=== PATIENT | female | born 1975 | race African-American/Black ===

== ENCOUNTER 2017-06-28 06:33 | Emergency (ER) | payer OTHER | END 2017-06-28 09:10 | disposition left against medical advice (07) | LOC: ERS 06:33 | DX: N61.1 Abscess of the breast and nipple (principal); B20 Human immunodeficiency virus [HIV] disease; F25.0 Schizoaffective disorder, bipolar type; F17.210 Nicotine dependence, cigarettes, uncomplicated | CPT/HCPCS: 99406 ==

== ENCOUNTER 2019-03-04 18:11 | Emergency (ER) | payer OTHER ==
[2019-03-04 18:44] LABS: #Lymphocytes 1.9 thou/uL (1.20-3.40); #Monocytes 0.5 thou/uL (0.11-0.59); #Neutrophils 2.2 thou/uL (1.40-6.50); %Basophils 0.9 % (0.0-1.0); %Eosinophils 0.8 % (0.0-10.0); %Lymphocytes 40.6 % (21.0-51.0); %Neutrophils 46.6 % (42.0-75.0); Hemoglobin 11.9 g/dL (12.0-16.0); Mean Corpuscular HGB CONC 34.6 g/dL (32.0-36.0); Mean Corpuscular Hemoglobin 23.3 pg (27.0-31.0); Mean Corpuscular Volume 67.3 fL (78.0-98.0); RBC Distribution Width 13.7 % (11.5-14.5); Red Blood Cell (RBC) Count 5.12 mill/uL (4.20-5.40); White Blood Cell (WBC) Count 4.7 thou/uL (4.8-10.8)
--- NOTE | 2019-03-04 18:54 | RAD ---
RADIOGRAPH CHEST 1 VIEW: DATE: 03/04/2019 HISTORY: 44-year-old female with chest pain and hypotension FINDINGS: There are no airspace densities, pulmonary edema, pneumothorax, or cardiomegaly. The lateral costophr enic angles are sharp. IMPRESSION: No acute cardiopulmonary findings.
[2019-03-04 18:57] LABS: ALT (SGPT) 21 U/L (8-55); AST (SGOT) 21 U/L (5-34); Albumin 3.5 g/dL (3.5-5.0); Alkaline Phosphatase 65 U/L (40-150); Anion Gap 11 mmol/L (10-20); BUN (Urea Nitrogen) 14 mg/dL (7.0-18.7); Bilirubin, Total 0.5 mg/dL (0.2-1.2); CK (CPK) 34 U/L (29-168); Calc. Creatinine Clearance 0 mL/min (70-130); Calcium 8.6 mg/dL (7.8-10.44); Carbon Dioxide 28 mmol/L (22-29); Chloride 105 mmol/L (98-107); Estimated GFR-MDRD 90; Globulin 2.9 g/dL (2.4-3.5); Glucose 78 mg/dL (70-105); Lipase 37 U/L (8-78); Magnesium 1.6 mg/dL (1.6-2.6); Protein, Total 6.4 g/dL (6.0-8.3); Sodium 141 mmol/L (136-145)
[2019-03-04 18:57] LABS: BHCG - Serum Negative (NEGATIVE); Pregs Control Background? CLEAR/WHITE (CLR/WHITE); Pregs Control Bar Appear? YES (CONTROL BAR)
[2019-03-04 19:06] LABS: Large Platelets SLIGHT; MDiff Complete? YES; Microcytosis MODERATE=15-30 cells (100X) (0-5/hpf); Ovalocytes SLIGHT = 2-5 cells (100X) (0-1/hpf); Platelet Count 122 thou/uL (130-400); Platelet Morphology Comment Appears Decreased; Target Cells MODERATE= 6-15 cells (100X) (0-1/hpf)
[2019-03-04] MEDS ORDERED: Potassium Chloride 20 MEQ TAB ONE (20:03)
[2019-03-04 20:10] LABS: Bacteria/HPF 4+ HPF (None Seen); Bilirubin Negative (Negative); Blood, Urine Trace (Negative); Calcium Oxalate Crystals Rare HPF (None Seen); Clarity Turbid (Clear); Glucose, Urine (Dipstick) Normal (Negative); Leukocyte 25 Leu/uL (Negative); Nitrite 2+ (Negative); Protein, Urine (Dipstick) 70 mg/dL (Neg-Trace); RBC/HPF None Seen HPF (0-3)
[2019-03-04 20:19] LABS: Medtox Reader # READER 4; Methamphetamine Detected (NotDetected); THC/Cannabinoid Screen Detected (NotDetected)
[2019-03-04 20:20] LABS: Amphetamine Detected (NotDetected); Barbiturates Screen Not Detected (NotDetected); Benzodiazepine Screen Not Detected (NotDetected); Cocaine Metabolite Screen Not Detected (NotDetected); Medtox Control Line Valid? VALID (VALID); Methadone Not Detected (NotDetected); Opiate Screen Not Detected (NotDetected); Oxycodone Screen Not Detected (NotDetected); Phencyclidine (PCP) Not Detected (NotDetected); Tricyclic Screen Not Detected (NotDetected)
[2019-03-04] MEDS ORDERED: cefTRIAXone\\ROCEPHIN 1 GM VIAL ONE (21:10)
== END 2019-03-04 23:07 | disposition home or self-care (01) ==
LOC: ERS 18:11
DX: N39.0 Urinary tract infection, site not specified (principal); B20 Human immunodeficiency virus [HIV] disease; F25.0 Schizoaffective disorder, bipolar type; F17.210 Nicotine dependence, cigarettes, uncomplicated
CPT/HCPCS: 36415; 71045; 80053; 80306; 81003; 81015; 82550; 83690; 83735; 84484; 84703; 85025; 93005; 96361; 96365; J0696

== ENCOUNTER 2021-05-11 08:08 | Emergency (ER) | payer OTHER ==
[2021-05-11] MEDS ORDERED: HYDROcodone/Acetaminophen 7.5/325 mg Tablet ONE (08:37)
== END 2021-05-11 09:42 | disposition home or self-care (01) ==
LOC: ERS 08:08
DX: M79.661 Pain in right lower leg (principal); G89.29 Other chronic pain; A64 Unspecified sexually transmitted disease; F17.210 Nicotine dependence, cigarettes, uncomplicated; Z79.899 Other long term (current) drug therapy; Z98.890 Other specified postprocedural states

== ENCOUNTER 2024-07-14 15:03 | Emergency (ER) | payer OTHER ==
[2024-07-14 15:50] LABS: #Basophils Less than 0.03 10x3/uL (0.0-0.2); #Eosinophils Less than 0.03 10x3/uL (0.0-0.7); %Basophils 0.2 % (0.0-1.0); %Eosinophils 0.5 % (0.0-10.0); %Lymphocytes 55.9 % (21.0-51.0); %Monocytes 11.4 % (0.0-10.0); %Neutrophils 31.8 % (42.0-75.0); Hematocrit 36.8 % (36.0-47.0); Hemoglobin 12.3 g/dL (12.0-16.0); Mean Corpuscular HGB CONC 33.4 g/dL (32.0-36.0); Mean Corpuscular Hemoglobin 20.3 pg (27.0-31.0); Mean Corpuscular Volume 60.8 fL (78.0-98.0); Platelet Count 185 10x3/uL (130-400); RBC Distribution Width 16.6 % (11.5-14.5); Red Blood Cell (RBC) Count 6.05 mill/uL (4.20-5.40)
[2024-07-14 15:58] LABS: BHCG - Serum Negative (NEGATIVE); Pregs Control Background? CLEAR/WHITE (CLR/WHITE); Pregs Control Bar Appear? YES (CONTROL BAR)
[2024-07-14 16:00] LABS: ALT (SGPT) 19 U/L (8-55); AST (SGOT) 25 U/L (5-34); Albumin 3.1 g/dL (3.5-5.0); Alkaline Phosphatase 99 U/L (40-110); Anion Gap 12 mmol/L (10-20); BUN (Urea Nitrogen) 9 mg/dL (7.0-18.7); Bilirubin, Total 0.6 mg/dL (0.2-1.2); Calc. Creatinine Clearance 0 mL/min (70-130); Calcium 8.6 mg/dL (7.8-10.44); Carbon Dioxide 28 mmol/L (22-29); Chloride 105 mmol/L (98-107); Estimated GFR 109; Globulin 4.9 g/dL (2.4-3.5); Glucose 89 mg/dL (70-105); Potassium 3.6 mmol/L (3.5-5.1); Sodium 141 mmol/L (136-145)
[2024-07-14 16:19] LABS: Anisocytosis MODERATE=16-30 cells HPF (0-5); Macrocytosis SLIGHT = 6-15 cells HPF (0-5); Microcytosis SLIGHT = 6-15 cells HPF (0-5); Platelet Adequacy Comment Platelets Normal; Poikilocytosis MODERATE=16-30 cells HPF (0-5); Target Cells MODERATE= 6-15 cells HPF (0-1)
[2024-07-14 16:52] LABS: Troponin I Less than 0.010 ng/mL (< 0.028)
[2024-07-14 17:11] LABS: INR-International Normal Ratio 0.9; Prothrombin Time 12.4 sec (12.0-14.7)
[2024-07-14 17:12] LABS: PTT 33.9 sec (22.9-36.1)
[2024-07-14] MEDS ORDERED: Ketorolac Tromethamine 30 MG (1 mL) VIAL ONE (17:21)
[2024-07-14 17:44] LABS: Amphetamine Not Detected (NotDetected); Barbiturates Screen Not Detected (NotDetected); Benzodiazepine Screen Not Detected (NotDetected); Cocaine Metabolite Screen Not Detected (NotDetected); Methadone Not Detected (NotDetected); Methamphetamine Not Detected (NotDetected); Opiate Screen Not Detected (NotDetected); Oxycodone Screen Not Detected (NotDetected); Phencyclidine (PCP) Not Detected (NotDetected); THC/Cannabinoid Screen Detected (NotDetected); Tricyclic Screen Not Detected (NotDetected)
[2024-07-14 17:53] LABS: Bacteria/HPF None Seen HPF (None Seen); Bilirubin Negative (Negative); Blood, Urine Trace (Negative); CAUTI Indications for Culture Pelvic or flank pain; Clarity Turbid (Clear); Glucose, Urine (Dipstick) Normal (Negative); Ketone, Urine Negative (Negative); Leukocyte Negative Leu/uL (Negative); Nitrite Negative (Negative); Protein, Urine (Dipstick) 100 mg/dL (Neg-Trace); Specific Gravity, Urine 1.023 (1.002-1.036); Squamous Epithelial None Seen HPF (0-3); WBC/HPF 0-3 HPF (0-3); pH, Urine 7.5 (5.0-9.0)
[2024-07-14 17:56] LABS: Urine Culture Reflex No No
== END 2024-07-14 18:45 | disposition home or self-care (01) ==
LOC: ERS 15:03
DX: R51.9 Headache, unspecified (principal); R20.2 Paresthesia of skin; R22.2 Localized swelling, mass and lump, trunk; K14.8 Other diseases of tongue; F17.210 Nicotine dependence, cigarettes, uncomplicated; B20 Human immunodeficiency virus [HIV] disease; Z89.612 Acquired absence of left leg above knee
CPT/HCPCS: 36415; 70450; 70496; 70498; 71045; 80053; 80306; 81001; 84484; 84703; 85025; 85610; 85730; 93005; 96374; J1885

== ENCOUNTER 2025-01-12 09:54 | Inpatient (IN) | payer OTHER ==
[2025-01-12] MEDS ORDERED: Pantoprazole 40 MG VIAL ONE (10:11)
[2025-01-12] MEDS ORDERED: Ondansetron PF 4 MG/2 ML Vial ONE (10:11)
[2025-01-12 10:54] LABS: Hematocrit 40.2 % (36.0-47.0); Hemoglobin 13.5 g/dL (12.0-16.0); Mean Corpuscular Hemoglobin 20.9 pg (27.0-31.0); Mean Corpuscular Volume 62.1 fL (78.0-98.0); Platelet Count 222 10x3/uL (130-400); Red Blood Cell (RBC) Count 6.47 mill/uL (4.20-5.40); White Blood Cell (WBC) Count 7.59 10x3/uL (4.8-10.8)
[2025-01-12 10:59] LABS: INR-International Normal Ratio 1.0; Prothrombin Time 13.0 sec (12.0-14.7)
[2025-01-12 11:00] LABS: PTT 37.5 sec (22.9-36.1)
[2025-01-12 11:06] LABS: ALT (SGPT) 9 U/L (Less than 34); AST (SGOT) 21 U/L (11-34); Albumin 3.7 g/dL (3.1-4.5); Alkaline Phosphatase 150 U/L (40-110); Anion Gap 13 mmol/L (10-20); BUN (Urea Nitrogen) 11 mg/dL (7.0-18.7); Bilirubin, Total 0.4 mg/dL (0.3-1.2); Calc. Creatinine Clearance 0 mL/min (70-130); Calcium 9.3 mg/dL (7.8-10.44); Carbon Dioxide 25 mmol/L (22-29); Chloride 109 mmol/L (98-107); Globulin 5.0 g/dL (2.4-3.5); Glucose 84 mg/dL (70-105); Lipase 29 U/L (8-78); Potassium 3.5 mmol/L (3.5-5.1); Sodium 143 mmol/L (136-145)
[2025-01-12] MEDS ORDERED: Iopamidol-370 76% 500 ML MDV (1 ML CHARGE) ONE (11:14)
[2025-01-12 11:31] LABS: Anisocytosis SLIGHT = 6-15 cells HPF (0-5); Hypersegmented Neutrophil SLIGHT (None Seen); Macrocytosis SLIGHT = 6-15 cells HPF (0-5); Microcytosis SLIGHT = 6-15 cells HPF (0-5); Platelet Adequacy Comment Platelets Normal; Polychromasia SLIGHT = 2-3 cells HPF (0-2); Reflex for Review?? YES; Smudge Cells 27.6 %; Target Cells MODERATE= 6-15 cells HPF (0-1)
[2025-01-12] MEDS ORDERED: Acetaminophen 325 MG TAB PO PRN (14:01)
[2025-01-12] MEDS ORDERED: Ondansetron PF 4 MG/2 ML Vial IVP PRN (14:01)
[2025-01-12 15:26] VITALS: BMI 23.1
[2025-01-12 15:39] LABS: Hematocrit 37.1 % (36.0-47.0); Hemoglobin 11.9 g/dL (12.0-16.0)
[2025-01-12] MEDS: Gabapentin 100 MG CAP PO SCH (20:27)
[2025-01-12 20:29] LABS: Hematocrit 33.4 % (36.0-47.0); Hemoglobin 11.3 g/dL (12.0-16.0)
[2025-01-12] MEDS ORDERED: Famotidine 20 MG TAB PO SCH (21:00)
[2025-01-13 05:55] LABS: #Basophils Less than 0.03 10x3/uL (0.0-0.2); #Eosinophils 0.16 10x3/uL (0.0-0.7); #Monocytes 0.58 10x3/uL (0.11-0.59); #Neutrophils 1.89 10x3/uL (1.40-6.50); %Basophils 0.2 % (0.0-1.0); %Eosinophils 3.1 % (0.0-10.0); %Lymphocytes 48.5 % (21.0-51.0); %Monocytes 11.3 % (0.0-10.0); %Neutrophils 36.7 % (42.0-75.0); Hematocrit 33.1 % (36.0-47.0); Hemoglobin 11.1 g/dL (12.0-16.0); Mean Corpuscular Hemoglobin 20.7 pg (27.0-31.0); Mean Corpuscular Volume 61.8 fL (78.0-98.0); Platelet Count 172 10x3/uL (130-400); Red Blood Cell (RBC) Count 5.36 mill/uL (4.20-5.40); White Blood Cell (WBC) Count 5.15 10x3/uL (4.8-10.8)
[2025-01-13 06:11] LABS: Anion Gap 8 mmol/L (10-20); BUN (Urea Nitrogen) 7 mg/dL (7.0-18.7); Calc. Creatinine Clearance 99 mL/min (70-130); Calcium 8.5 mg/dL (7.8-10.44); Carbon Dioxide 26 mmol/L (22-29); Chloride 109 mmol/L (98-107); Glucose 74 mg/dL (70-105); Potassium 3.6 mmol/L (3.5-5.1); Sodium 139 mmol/L (136-145)
[2025-01-13] MEDS: Citalopram 20 MG TAB PO SCH (08:24)
[2025-01-13] MEDS: Pantoprazole 40 MG VIAL IVP SCH (08:25)
[2025-01-13 12:38] LABS: %CD4 (Helper/Inducer) 23.7 % (30.8-58.5); Absolute CD4 806 /uL (359-1519); Lymphocytes/Gated Cell Count 3.4 x10E3/uL (0.7-3.1); Total Lymphocyte 40 % (Not Estab.); WBC Total Count 8.6 x10E3/uL (3.4-10.8)
[2025-01-14 06:50] LABS: #Basophils Less than 0.03 10x3/uL (0.0-0.2); #Eosinophils 0.11 10x3/uL (0.0-0.7); #Monocytes 0.45 10x3/uL (0.11-0.59); #Neutrophils 1.55 10x3/uL (1.40-6.50); %Basophils 0.5 % (0.0-1.0); %Eosinophils 2.6 % (0.0-10.0); %Lymphocytes 49.5 % (21.0-51.0); %Monocytes 10.7 % (0.0-10.0); %Neutrophils 36.7 % (42.0-75.0); Hematocrit 33.3 % (36.0-47.0); Hemoglobin 11.1 g/dL (12.0-16.0); Mean Corpuscular Hemoglobin 20.6 pg (27.0-31.0); Mean Corpuscular Volume 61.9 fL (78.0-98.0); Platelet Count 161 10x3/uL (130-400); Red Blood Cell (RBC) Count 5.38 mill/uL (4.20-5.40); White Blood Cell (WBC) Count 4.22 10x3/uL (4.8-10.8)
[2025-01-14 07:23] LABS: Anion Gap 10 mmol/L (10-20); BUN (Urea Nitrogen) 8 mg/dL (7.0-18.7); Calc. Creatinine Clearance 101 mL/min (70-130); Calcium 8.5 mg/dL (7.8-10.44); Carbon Dioxide 24 mmol/L (22-29); Chloride 108 mmol/L (98-107); Glucose 77 mg/dL (70-105); Iron 56 ug/dL (50-170); Iron Binding Capacity, Total 249 mcg/dL (265-497); Potassium 3.2 mmol/L (3.5-5.1); Sodium 139 mmol/L (136-145)
[2025-01-14] MEDS ORDERED: Electrolyte Replacement Protocol 1 EACH FS SCH (08:00)
[2025-01-14 08:03] LABS: Macrocytosis SLIGHT = 6-15 cells HPF (0-5); Nucleated RBC (Manual Ct) 1 % (0); Platelet Adequacy Comment Platelets Normal; Target Cells MODERATE= 6-15 cells HPF (0-1)
[2025-01-14 11:39] LABS: Campy jejuni + coli by PCR Negative (Negative); STEC Shiga Toxin 1+2 Negative (Negative); Salmonella spp. by PCR Negative (Negative); Shigella spp + EIEC by PCR Negative (Negative)
[2025-01-15 06:53] LABS: Anion Gap 10 mmol/L (10-20); BUN (Urea Nitrogen) 6 mg/dL (9.8-20.1); Calc. Creatinine Clearance 104 mL/min (70-130); Calcium 8.3 mg/dL (7.8-10.44); Carbon Dioxide 25 mmol/L (22-29); Chloride 107 mmol/L (98-107); Glucose 71 mg/dL (70-105); Magnesium 1.5 mg/dL (1.6-2.6); Potassium 3.6 mmol/L (3.5-5.1); Sodium 138 mmol/L (136-145)
[2025-01-15 06:55] LABS: #Basophils Less than 0.03 10x3/uL (0.0-0.2); #Eosinophils 0.16 10x3/uL (0.0-0.7); #Monocytes 0.41 10x3/uL (0.11-0.59); #Neutrophils 1.22 10x3/uL (1.40-6.50); %Basophils 0.5 % (0.0-1.0); %Eosinophils 3.9 % (0.0-10.0); %Lymphocytes 55.5 % (21.0-51.0); %Monocytes 10.0 % (0.0-10.0); %Neutrophils 29.9 % (42.0-75.0); Hematocrit 32.6 % (36.0-47.0); Hemoglobin 10.9 g/dL (12.0-16.0); Mean Corpuscular Hemoglobin 20.6 pg (27.0-31.0); Mean Corpuscular Volume 61.5 fL (78.0-98.0); Platelet Count 152 10x3/uL (130-400); Red Blood Cell (RBC) Count 5.30 mill/uL (4.20-5.40); White Blood Cell (WBC) Count 4.09 10x3/uL (4.8-10.8)
[2025-01-15] MEDS: Magnesium 2 GM/50 ML(in water) 2 GM in Premix 1 BAG IVPB SCH (08:09)
[2025-01-16 06:28] LABS: #Basophils 0.03 10x3/uL (0.0-0.2); #Eosinophils 0.21 10x3/uL (0.0-0.7); #Monocytes 0.45 10x3/uL (0.11-0.59); #Neutrophils 1.45 10x3/uL (1.40-6.50); %Basophils 0.7 % (0.0-1.0); %Eosinophils 4.7 % (0.0-10.0); %Lymphocytes 52.2 % (21.0-51.0); %Monocytes 10.0 % (0.0-10.0); %Neutrophils 32.2 % (42.0-75.0); Hematocrit 32.4 % (36.0-47.0); Hemoglobin 10.7 g/dL (12.0-16.0); Mean Corpuscular Hemoglobin 20.5 pg (27.0-31.0); Mean Corpuscular Volume 62.1 fL (78.0-98.0); Platelet Count 161 10x3/uL (130-400); Red Blood Cell (RBC) Count 5.22 mill/uL (4.20-5.40); White Blood Cell (WBC) Count 4.50 10x3/uL (4.8-10.8)
[2025-01-16 06:42] LABS: Anion Gap 8 mmol/L (10-20); BUN (Urea Nitrogen) 8 mg/dL (9.8-20.1); Calc. Creatinine Clearance 95 mL/min (70-130); Calcium 8.2 mg/dL (7.8-10.44); Carbon Dioxide 26 mmol/L (22-29); Chloride 110 mmol/L (98-107); Glucose 88 mg/dL (70-105); Potassium 3.6 mmol/L (3.5-5.1); Sodium 140 mmol/L (136-145)
[2025-01-16 06:57] LABS: Microcytosis SLIGHT = 6-15 cells HPF (0-5); Platelet Adequacy Comment Platelets Normal; Polychromasia SLIGHT = 2-3 cells HPF (0-2); Target Cells SLIGHT = 2-5 cells HPF (0-1)
[2025-01-16 08:22] LABS: Magnesium 1.6 mg/dL (1.6-2.6)
[2025-01-16] MEDS: Magnesium 2 GM/50 ML(in water) 2 GM in Premix 1 BAG IVPB SCH (10:21)
[2025-01-16 16:14] LABS: Adenovirus F 40-41 Not Detected (Not Detected); C. difficile toxin A+B Not Detected (Not Detected); Norovirus GI-GII Not Detected (Not Detected)
[2025-01-17 06:08] LABS: Anion Gap 8 mmol/L (10-20); BUN (Urea Nitrogen) 11 mg/dL (9.8-20.1); Calc. Creatinine Clearance 86 mL/min (70-130); Calcium 8.4 mg/dL (7.8-10.44); Carbon Dioxide 28 mmol/L (22-29); Chloride 109 mmol/L (98-107); Glucose 100 mg/dL (70-105); Magnesium 1.6 mg/dL (1.6-2.6); Potassium 3.7 mmol/L (3.5-5.1); Sodium 141 mmol/L (136-145)
[2025-01-17 06:28] LABS: #Basophils Less than 0.03 10x3/uL (0.0-0.2); #Eosinophils 0.25 10x3/uL (0.0-0.7); #Monocytes 0.47 10x3/uL (0.11-0.59); #Neutrophils 2.04 10x3/uL (1.40-6.50); %Basophils 0.4 % (0.0-1.0); %Eosinophils 4.5 % (0.0-10.0); %Lymphocytes 49.9 % (21.0-51.0); %Monocytes 8.4 % (0.0-10.0); %Neutrophils 36.6 % (42.0-75.0); Hematocrit 33.1 % (36.0-47.0); Hemoglobin 11.0 g/dL (12.0-16.0); Mean Corpuscular Hemoglobin 20.5 pg (27.0-31.0); Mean Corpuscular Volume 61.8 fL (78.0-98.0); Platelet Count 146 10x3/uL (130-400); Red Blood Cell (RBC) Count 5.36 mill/uL (4.20-5.40); White Blood Cell (WBC) Count 5.57 10x3/uL (4.8-10.8)
[2025-01-17] MEDS: Magnesium 2 GM/50 ML(in water) 2 GM in Premix 1 BAG IVPB SCH (07:55)
[2025-01-17 14:38] VITALS: BP 158/84; TEMP 98.2
[2025-01-18 04:37] LABS: Adenovirus F 40-41 Not Detected (Not Detected); C. difficile toxin A+B Not Detected (Not Detected); Norovirus GI-GII Not Detected (Not Detected)
== END 2025-01-17 14:35 | disposition home or self-care (01) | DRG 392 ==
LOC: ERS 09:54 → T4-B 13:30 → OBSVTOIN 01-13 07:35
PROVIDERS: ADMIT Internal Medicine; ATTEND Family Medicine
DX: K52.9 Noninfective gastroenteritis and colitis, unspecified (principal); F20.0 Paranoid schizophrenia; Z21 Asymptomatic human immunodeficiency virus [HIV] infection status; I10 Essential (primary) hypertension; E78.5 Hyperlipidemia, unspecified; Z86.73 Personal history of transient ischemic attack (TIA), and cerebral infarction without residual deficits; Z90.710 Acquired absence of both cervix and uterus; Z98.890 Other specified postprocedural states; F31.9 Bipolar disorder, unspecified; D50.9 Iron deficiency anemia, unspecified
CPT/HCPCS: 36415; 36416; 74177; 80048; 80053; 82728; 83540; 83550; 83690; 83735; 85025; 85060; 85610; 85730; 86361; 86850; 86900; 86901; 87015; 87206; 87324; 87328; 87329; 87449; 87505; 87507; 87899; 96366; 96376; G0378; J2270; J2272; J2405; J2470; J2543; J3475; J7120; Q9967

== ENCOUNTER 2025-03-21 12:58 | Emergency (ER) | payer OTHER | END 2025-03-21 13:26 | LOC: ERS 12:58 | DX: Z53.21 Procedure and treatment not carried out due to patient leaving prior to being seen by health care provider (principal) ==

== ENCOUNTER 2025-03-22 08:38 | Emergency (ER) | payer OTHER ==
[2025-03-22] MEDS ORDERED: Ondansetron PF 4 MG/2 ML Vial ONE (09:01)
[2025-03-22] MEDS ORDERED: Ketorolac Tromethamine 30 MG (1 mL) VIAL ONE (09:01)
[2025-03-22 09:41] LABS: #Basophils Less than 0.03 10x3/uL (0.0-0.2); #Eosinophils 0.10 10x3/uL (0.0-0.7); #Monocytes 0.45 10x3/uL (0.11-0.59); #Neutrophils 2.59 10x3/uL (1.40-6.50); %Basophils 0.2 % (0.0-1.0); %Eosinophils 2.3 % (0.0-10.0); %Lymphocytes 27.8 % (21.0-51.0); %Monocytes 10.3 % (0.0-10.0); %Neutrophils 58.9 % (42.0-75.0); Hematocrit 47.8 % (36.0-47.0); Hemoglobin 16.2 g/dL (12.0-16.0); Mean Corpuscular Hemoglobin 20.6 pg (27.0-31.0); Mean Corpuscular Volume 60.9 fL (78.0-98.0); Platelet Count 75 10x3/uL (130-400); Red Blood Cell (RBC) Count 7.85 mill/uL (4.20-5.40); White Blood Cell (WBC) Count 4.39 10x3/uL (4.8-10.8)
[2025-03-22 09:51] LABS: ALT (SGPT) Less than 7 U/L (Less than 34); AST (SGOT) 16 U/L (11-34); Albumin 2.8 g/dL (3.1-4.5); Alkaline Phosphatase 116 U/L (40-110); Anion Gap 10 mmol/L (10-20); BUN (Urea Nitrogen) 9 mg/dL (9.8-20.1); Bilirubin, Total 0.3 mg/dL (0.3-1.2); Calc. Creatinine Clearance 0 mL/min (70-130); Calcium 8.3 mg/dL (7.8-10.44); Carbon Dioxide 25 mmol/L (22-29); Chloride 106 mmol/L (98-107); Globulin 4.6 g/dL (2.4-3.5); Glucose 92 mg/dL (70-105); Lipase 22 U/L (8-78); Potassium 3.7 mmol/L (3.5-5.1); Sodium 137 mmol/L (136-145)
[2025-03-22 10:08] LABS: Anisocytosis SLIGHT = 6-15 cells HPF (0-5); Microcytosis SLIGHT = 6-15 cells HPF (0-5); Platelet Adequacy Comment Platelets Decreased; Target Cells SLIGHT = 2-5 cells HPF (0-1)
[2025-03-22] MEDS ORDERED: Iopamidol-370 76% 500 ML MDV (1 ML CHARGE) ONE (10:28)
[2025-03-22 11:03] LABS: Bacteria/HPF None Seen HPF (None Seen); CAUTI Indications for Culture Dysuria,urgency,freq; Glucose, Urine (Dipstick) Normal (Negative); Leukocyte Negative Leu/uL (Negative); Protein, Urine (Dipstick) 100 mg/dL (Neg-Trace); Specific Gravity, Urine 1.021 (1.002-1.036); WBC/HPF 0-3 HPF (0-3)
[2025-03-22 11:10] LABS: Urine Culture Reflex No No
== END 2025-03-22 15:57 | disposition home or self-care (01) ==
LOC: ERS 08:38
DX: R10.9 Unspecified abdominal pain (principal); B20 Human immunodeficiency virus [HIV] disease; I10 Essential (primary) hypertension; F17.200 Nicotine dependence, unspecified, uncomplicated; Z55.6 Problems related to health literacy; Z75.3 Unavailability and inaccessibility of health-care facilities; Z86.73 Personal history of transient ischemic attack (TIA), and cerebral infarction without residual deficits
CPT/HCPCS: 74177; 80053; 81001; 83690; 85025; 87086; 96374; 96375; 96376; J1885; J2270; J2405; Q9967